=== PATIENT | male | born 1960 | race Caucasian/White ===

== ENCOUNTER → 2023-08-27 06:23 | Day surgery (SDC) | payer OTHER, SELFPAY | LOC: GI 06:23 | PROVIDERS: ATTENDING PHYSICIAN Surgery | DX: Z08 Encounter for follow-up examination after completed treatment for malignant neoplasm (principal); K62.89 Other specified diseases of anus and rectum; Z15.09 Genetic susceptibility to other malignant neoplasm; Z85.048 Personal history of other malignant neoplasm of rectum, rectosigmoid junction, and anus | CPT/HCPCS: 45331; 88305 ==

== ENCOUNTER → 2024-01-21 06:30 | Day surgery (SDC) | payer OTHER, SELFPAY | LOC: GI 06:30 | PROVIDERS: ATTENDING PHYSICIAN Surgery | DX: Z12.11 Encounter for screening for malignant neoplasm of colon (principal); K62.89 Other specified diseases of anus and rectum; Z15.09 Genetic susceptibility to other malignant neoplasm; Z85.048 Personal history of other malignant neoplasm of rectum, rectosigmoid junction, and anus; Z85.038 Personal history of other malignant neoplasm of large intestine | CPT/HCPCS: 45331; 88305 ==

== ENCOUNTER → 2024-06-09 06:19 | Day surgery (SDC) | payer MEDICARE, OTHER, SELFPAY | LOC: GI 06:19 | PROVIDERS: ATTENDING PHYSICIAN Surgery | DX: Z85.048 Personal history of other malignant neoplasm of rectum, rectosigmoid junction, and anus (principal); Z90.49 Acquired absence of other specified parts of digestive tract | CPT/HCPCS: 45330 ==

== ENCOUNTER 2024-11-10 06:19 | Day surgery (SDC) | payer MEDICARE, OTHER, SELFPAY | END 2024-11-10 09:17 | disposition home or self-care (01) | LOC: GI 06:19 | PROVIDERS: ATTENDING PHYSICIAN Surgery | DX: Z12.11 Encounter for screening for malignant neoplasm of colon (principal); Z15.09 Genetic susceptibility to other malignant neoplasm; Z85.038 Personal history of other malignant neoplasm of large intestine | CPT/HCPCS: 45330 ==